=== PATIENT | female | born 1995 | race American Indian/Alaskan Native ===

== ENCOUNTER 2017-12-20 20:20 | Outpatient (CLI) | payer MEDICAID ==
[2017-12-20] MEDS ORDERED: LACTATED RINGERS 500 ML IV ONE (20:26)
[2017-12-20 20:42] VITALS: BP 120/72
[2017-12-20 21:39] LABS: Bilirubin,Urine NEG (Negative); Blood,Urine NEG (Negative); Color,Urine Yellow (Yellow); Mucus,Urine FEW /HPF; Protein,Urine <15 mg/dL mg/dL (Negative); Urobilinogen,Urine < 2.0 mg/dL (<2.0)
[2017-12-20] MEDS ORDERED: LACTATED RINGERS 1,000 ML ONE (23:05)
[2017-12-20] MEDS ORDERED: TYLENOL PO ONE (23:14)
--- NOTE | 2017-12-20 23:45 | Ultrasound Report ---
FINAL REPORT EXAM: US OB BPP WO NON-STRESS HISTORY: variable decel, GENESIS BPP TECHNIQUE: Ultrasound biophysical profile PRIORS: None. FINDINGS: Single live intrauterine gestation is present Biophysical profile was performed respiratory motion 2 Body movement 2 tone 2 Amniotic fluid volume 2 Total 8/8 Deepest pocket measurement is 4.18 centimeters heart rate is one hundred fifty Impression Normal biophysical profile 8/8
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
== END 2017-12-20 23:25 | disposition home or self-care (01) ==
LOC: TRG 20:20
PROVIDERS: ATTEND Obstetrics & Gynecology
DX: O36.8120 Decreased fetal movements, second trimester, not applicable or unspecified (principal); O26.892 Other specified pregnancy related conditions, second trimester; O99.332 Smoking (tobacco) complicating pregnancy, second trimester; R10.30 Lower abdominal pain, unspecified; Z3A.25 25 weeks gestation of pregnancy; Z88.0 Allergy status to penicillin
CPT/HCPCS: 59025; 76815; 76819; 81001; 96360; J7120

== ENCOUNTER 2018-01-30 20:39 | Outpatient (CLI) | payer MEDICAID ==
[2018-01-30 20:52] VITALS: BP 116/60
== END 2018-01-30 21:22 | disposition home or self-care (01) ==
LOC: TRG 20:39
PROVIDERS: ATTEND Obstetrics & Gynecology
DX: O47.03 False labor before 37 completed weeks of gestation, third trimester (principal); O99.333 Smoking (tobacco) complicating pregnancy, third trimester; Z3A.31 31 weeks gestation of pregnancy
CPT/HCPCS: 59025

== ENCOUNTER 2018-02-18 15:25 | Outpatient (CLI) | payer MEDICAID ==
[2018-02-18 15:52] VITALS: BP 123/68
[2018-02-18] MEDS ORDERED: LACTATED RINGERS 500 ML IV ONE (16:00)
[2018-02-18 16:28] LABS: Bilirubin,Urine NEG (Negative); Blood,Urine NEG (Negative); Color,Urine Colorless (Yellow); Protein,Urine <15 mg/dL mg/dL (Negative); RBC,Urine < 1.0 /HPF (0.0-6.0); Urobilinogen,Urine < 2.0 mg/dL (<2.0)
[2018-02-18 16:38] LABS: WBC,Urine < 1.0 /HPF (0.0-6.0)
== END 2018-02-18 17:26 | disposition home or self-care (01) ==
LOC: TRG 15:25
PROVIDERS: ATTEND Obstetrics & Gynecology
DX: O47.03 False labor before 37 completed weeks of gestation, third trimester (principal); Z3A.34 34 weeks gestation of pregnancy; Z87.891 Personal history of nicotine dependence
CPT/HCPCS: 59025; 81001; J7120

== ENCOUNTER 2019-02-10 20:16 | Emergency (ER) | payer MEDICAID ==
[2019-02-10] MEDS ORDERED: NORCO 5/325 PO ONE (20:45)
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
[2019-02-10] MEDS ORDERED: XYLOCAINE 1% 20 mL INFILTRATI ONE (20:51)
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
[2019-02-10 23:01] VITALS: BP 141/89
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
== END 2019-02-10 23:01 | disposition home or self-care (01) ==
LOC: ED 20:16
DX: S09.90XA Unspecified injury of head, initial encounter (principal); S41.112A Laceration without foreign body of left upper arm, initial encounter; J45.909 Unspecified asthma, uncomplicated; Z88.0 Allergy status to penicillin; Z79.899 Other long term (current) drug therapy; M54.5 Low back pain; Y08.89XA Assault by other specified means, initial encounter; Y93.89 Activity, other specified; Y92.89 Other specified places as the place of occurrence of the external cause; Y99.8 Other external cause status
CPT/HCPCS: 70450; 72070; 72100; 72125

== ENCOUNTER 2019-02-21 12:18 | Emergency (ER) | payer MEDICAID ==
[2019-02-21 12:43] VITALS: BP 120/74
--- NOTE | 2019-02-21 12:46 | Emergency Department Report ---
[facility]oval - [facility] Chief Complaint: Laceration/Recheck/Suture Stated Complaint: LFT ARM STITCHS REMOVED Time Seen by Provider: 02/21/19 12:41 When Sutures or Echo Placed: 5-7 Days Ago Wound Location: left arm ED Review of Systems ROS: Stated complaint: LFT ARM STITCHS REMOVED Other details as noted in HPI Constitutional: denies: chills, fever Eyes: denies: eye pain, eye discharge, vision change ENT: denies: ear pain, throat pain Respiratory: denies: cough, shortness of breath, wheezing Cardiovascular: denies: chest pain, palpitations Endocrine: no symptoms reported Gastrointestinal: denies: abdominal pain, nausea, diarrhea Genitourinary: denies: urgency, dysuria, discharge Musculoskeletal: denies: back pain, joint swelling, arthralgia Skin: denies: rash, lesions Neurological: denies: headache, weakness, paresthesias Psychiatric: denies: anxiety, depression Hematological/Lymphatic: denies: easy bleeding, easy bruising ED Past Medical Hx - Past Medical History Previous Medical History?: Yes Hx Hypertension: No Hx Congestive Heart Failure: No Hx Diabetes: No Hx Deep Vein Thrombosis: No Hx Renal Disease: No Hx Sickle Cell Disease: No Hx Seizures: No Hx Asthma: Yes Hx COPD: No Hx HIV: No - Surgical History Past Surgical History?: No - Social History Smoking Status: Current Every Day Smoker Substance Use Type: None - Medications Home Medications: Home Medications Medication Instructions Recorded Confirmed Last Taken Type Pnv Plus Multivit Tab 03/24/18 03/23/18 History Ferrous Sulfate [Feosol 325 MG tab] 325 mg PO BID #60 tablet 03/25/18 Unknown Rx Ibuprofen [Motrin 600 MG tab] 600 mg PO Q6H #30 tablet 03/25/18 Unknown Rx Vit-Fe Fumar-FA [ 1 each PO QDAY #30 tablet 03/25/18 Unknown Rx Vitamin] Bacitracin 1 each TP BID #1 packet 02/10/19 Unknown Rx Cyclobenzaprine [Flexeril] 10 mg PO TID PRN #20 tablet 02/10/19 Unknown Rx HYDROcodone/APAP 5-325 [[place] 1 each PO Q6HR PRN #20 tablet 02/10/19 Unknown Rx 5/325] Suture Removal Exam - Exam General: Vital signs noted. No distress. Alert and acting appropriately. Wound: No Pathologic Erythema, No Tenderness, No Drainage, No Pus, No Wound Dehiscence Other Systems: All other systems reviewed and are unremarkable. ED Course Vital Signs 02/21/19 12:41 Temperature 97.9 F Pulse Rate 71 Respiratory 18 Rate Blood Pressure 120/74 O2 Sat by Pulse 98 Oximetry - Reevaluation(s) Reevaluation #1: 02/21/19 12:45 Patient is speaking in full sentences with no questions noted by the patient. ED Recheck [facility] - Medical Decision Making Total of 3 suture removed. PAtient tolerated well. Normal healing. Patient was instructed to Follow-up with a primary care doctor in 3-5 days or if symptoms worsen and continue return to emergency room as soon as possible. At time of discharge, the patient does not seem toxic or ill in appearance. No acute signs of distress noted. Patient agrees to discharge treatment plan of care. No further questions noted by the patient. Critical care attestation.: If time is entered above; I have spent that time in minutes in the direct care of this critically ill patient, excluding procedure time. ED Disposition Clinical Impression: Visit for suture removal Disposition: DC-01 TO HOME OR SELFCARE Is pt being admited?: No Does the pt Need Aspirin: No Condition: Stable Instructions: Suture Removal (ED) Additional Instructions: Follow-up with a primary care doctor in 3-5 days or if symptoms worsen and continue return to emergency room as soon as possible. Referrals: PRIMARY CAREMD [Referring] - 3-5 Days WENCESLAO HICKMAN MD [Staff Physician] - 3-5 Days [facility] [Outside] - 3-[address] [facility] [Outside] - 3-5 Days Forms: Work/School Release Form(ED)
== END 2019-02-21 13:00 | disposition home or self-care (01) ==
LOC: ED 12:18
DX: S41.112D Laceration without foreign body of left upper arm, subsequent encounter (principal); F17.200 Nicotine dependence, unspecified, uncomplicated; Z88.0 Allergy status to penicillin; X58.XXXD Exposure to other specified factors, subsequent encounter

== ENCOUNTER 2020-08-01 11:56 | Emergency (ER) | payer SELFPAY ==
--- NOTE | 2020-08-01 13:00 | Event Note ---
ED Screening Note Date of service: 08/01/20 Time: 12:59 ED Screening Note: 25-year-old female patient presents to the emergency department with complaints of nontraumatic headache, abdominal pain, dysuria, and vaginal irritation for 2 days. No known sick contacts. No recent travel. No current steroid or antibiotic use. Last menstrual period was first week of June. General: Awake, appropriately interactive, no acute distress. Neck: Supple. Full range of motion intact. Cardiovascular: Normal peripheral perfusion. Pulmonary: No respiratory distress. Patient is speaking normally without use of accessory muscles. Abdomen: Soft, nondistended. Epigastric and suprapubic tenderness without guarding, rigidity, or rebound. Skin: No apparent rashes or lesions. Neurological: No facial asymmetry. Speech is clear. Follows commands. Patient is alert and oriented. Musculoskeletal: Moves all four extremities spontaneously with normal range of motion. Psych: Cooperative. Appropriate mood and affect. I have greeted and performed a focused rapid initial assessment of this patient. A comprehensive ED assessment and evaluation of the patient, analysis of all test results, and completion of the medical decision-making process will be conducted by additional ED providers. This initial assessment/diagnostic orders/clinical plan/treatment(s) is/are subject to change based on patients health status, clinical progression and re-assessment. Further treatment and workup at subsequent clinical provider's discretion. Patient/guardian urged not to elope from the ED as their condition may be serious if not clinically assessed and managed.
[2020-08-01 13:46] LABS: Hematocrit 41.5 % (30.3-42.9); Hemoglobin 13.8 gm/dl (10.1-14.3); Mean Corpuscular HGB Conc 33 % (30-34); Mean Corpuscular Volume 86 fl (79-97); Red Cell Distribution Width 15.2 % (13.2-15.2)
[2020-08-01 13:49] LABS: Platelet Count 225 K/mm3 (140-440)
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
[2020-08-01 14:31] LABS: Total Cells Counted 100
[2020-08-01 14:32] LABS: Ovalocytes 1+; Schistocytes Rare
[2020-08-01 14:33] LABS: Platelet Estimate Consistent w Auto
[2020-08-01 14:42] LABS: Alanine Aminotransferase 20 units/L (7-56); Albumin 4.3 g/dL (3.9-5); Blood Urea Nitrogen 9 mg/dL (7-17); Calcium 9.1 mg/dL (8.4-10.2); Hemolysis Index 90
[2020-08-01 15:01] LABS: BUN/Creatinine Ratio 15
[2020-08-01 16:12] LABS: Bilirubin,Urine NEG (Negative); Blood,Urine MOD (Negative); Color,Urine Yellow (Yellow); Mucus,Urine FEW /HPF; Protein,Urine <15 mg/dL mg/dL (Negative); Urobilinogen,Urine < 2.0 mg/dL (<2.0)
[2020-08-01 17:03] VITALS: BP 122/80
== END 2020-08-01 17:02 | disposition home or self-care (01) ==
LOC: ED 11:56
DX: N30.90 Cystitis, unspecified without hematuria (principal); J45.909 Unspecified asthma, uncomplicated; Z79.899 Other long term (current) drug therapy; Z88.0 Allergy status to penicillin
CPT/HCPCS: 36415; 80053; 81001; 83690; 84702; 85007; 85025